=== PATIENT | male | born 1990 | race Caucasian/White ===

== ENCOUNTER 2016-09-01 17:08 | Emergency (ER) | payer SELFPAY ==
[2016-09-01 17:31] VITALS: O2SAT 98
[2016-09-01] MEDS ORDERED: MethylPREDNISolone 40 mg Vial IM STA (18:11)
[2016-09-01] MEDS ORDERED: MethylPREDNISolone 40 mg Vial ONE (18:20)
--- NOTE | 2016-09-01 18:24 | C.PDOC ---
History Of Present Illness 26 yr old male presents to the ER with complaints of a rash to the bilateral arms, legs and diffusely to the face for the past 1 month. Patient states he was seen here few weeks ago and was prescribed medication which helped but as soon as he stopped taking the medication the rash came back. Patient reports his room mates with similar symptoms but worse. Patient denies fever, chills, cough, throat swelling, SOB, nausea, vomiting, diarrhea, headache, weakness or numbness. Time Seen by Provider: 09/01/16 17:30 Chief Complaint (Nursing): Abnormal Skin Integrity History Per: Patient History/Exam Limitations: no limitations Onset/Duration Of Symptoms: Persistent (days) Past Medical History Reviewed: Historical Data, Nursing Documentation, Vital Signs Vital Signs: Last Vital Signs Temp 98.4 F 09/01/16 17:29 Pulse 101 H 09/01/16 17:29 Resp 16 09/01/16 17:29 BP 124/70 09/01/16 17:29 Pulse Ox 98 09/01/16 18:28 Family History: States: No Known Family Hx - Social History Hx Tobacco Use: No Hx Alcohol Use: Yes Hx Substance Use: No - Immunization History Hx Tetanus Toxoid Vaccination: No Hx Influenza Vaccination: Yes (2016) Hx Pneumococcal Vaccination: No Review Of Systems Except As Marked, All Systems Reviewed And Found Negative. Constitutional: Negative for: Fever, Chills ENT: Negative for: Mouth Swelling Respiratory: Negative for: Cough, Shortness of Breath Gastrointestinal: Negative for: Nausea, Vomiting, Diarrhea Neurological: Negative for: Weakness, Numbness, Headache Physical Exam - Physical Exam Appears: Non-toxic, No Acute Distress Skin: Warm, Dry, Rash (Diffuse urticaria hives to the bilateral arms, legs and face.) Head: Atraumatic, Normacephalic Eye(s): bilateral: Normal Inspection, PERRL, EOMI Oral Mucosa: Moist Lips: Normal Appearing, No Swelling Throat: Normal, No Erythema, No Exudate, No Drooling Chest: Symmetrical, No Tenderness Cardiovascular: Rhythm Regular, No Murmur Respiratory: Normal Breath Sounds, No Rales, No Rhonchi, No Stridor, No Wheezing Gastrointestinal/Abdominal: Normal Exam, Soft, No Tenderness, No Guarding, No Rebound Extremity: Normal ROM, No Swelling Neurological/Psych: Oriented x3, Normal Speech, Normal Motor ED Course And Treatment O2 Sat by Pulse Oximetry: 98 Medical Decision Making Medical Decision Making: PLAN: * Benadryl PO * Pepcid PO * Solumedrol IM On re-exam, the patient reports improvement of symptoms. Airways are patent. Lungs remain CTA, heart is RRR, abdomen is soft, non-tender and tolerating PO well. Ambulatory in the ED with steady gait. Follow up with the medical doctor within 1-2 days without fail, Return if worsened, Disposition - Disposition Referrals: [facility] [Outside] Disposition: HOME/ ROUTINE Disposition Time: 19:19 Condition: GOOD Additional Instructions: Follow up with the medical doctor within 1-2 days without fail, Return if worsened, Prescriptions: DiphenhydrAMINE [Benadryl] 25 mg PO Q4H PRN #30 cap PRN Reason: Itching / Pruritus Famotidine [Pepcid] 20 mg PO BID #20 tab predniSONE [Prednisone] 20 mg PO BID #10 tab Instructions: Urticaria (ED) - Clinical Impression Clinical Impression: Urticaria - 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 - Scribe Statement The provider has reviewed the documentation as recorded by the Scribe Gillian Field All medical record entries made by the Scribe were at my direction and personally dictated by me. I have reviewed the chart and agree that the record accurately reflects my personal performance of the history, physical exam, medical decision making, and the department course for this patient. I have also personally directed, reviewed, and agree with the discharge instructions and disposition.
[2016-09-01 19:23] VITALS: BP 126/86; PULSE 108; RESP 20; TEMP 98.2
== END 2016-09-01 19:29 | disposition home or self-care (01) ==
LOC: C.ER 17:08
DX: L50.9 Urticaria, unspecified (principal)
CPT/HCPCS: 96372; 99284; J2920